=== PATIENT | female | born 1970 | race Caucasian/White ===

== ENCOUNTER 2023-10-09 10:24 | Emergency (ER) | payer OTHER ==
[~2023-10-09] VITALS: Ht 157.5 cm; Wt 77.1 kg
[~2023-10-09 10:24] MED LIST: Norco 7.5-3251 EACH PO
[2023-10-09] MEDS ORDERED: Ondansetron HCl 2 MG / ML 2ML Vial IV ONE (10:35)
[2023-10-09 11:13] LABS: BASOPHILS ABSOLUTE AUTO 0.05 K/mm3 (0.00-0.23); BASOPHILS PERCENT AUTO 1 % (0-2); EOSINOPHILS ABSOLUTE AUTO 0.21 K/mm3 (0.00-0.68); EOSINOPHILS PERCENT AUTO 4 % (0-6); Hematocrit 29.4 % (33.0-51.0); Hemoglobin 8.3 g/dL (11.5-16.0); IMMATURE GRAN ABSOLUTE AUTO 0.02 K/mm3 (0.00-0.10); IMMATURE GRAN PERCENT AUTO 0 % (0-1); LYMPHOCYTES ABSOLUTE AUTO 2.21 K/mm3 (0.84-5.20); LYMPHOCYTES PERCENT AUTO 37 % (21-46); MONOCYTES ABSOLUTE AUTO 0.46 K/mm3 (0.16-1.47); MONOCYTES PERCENT AUTO 8 % (4-13); Mean Corpuscular HGB 20.7 pg (26.0-34.0); Mean Corpuscular HGB Conc 28.2 g/dL (31.5-36.5); Mean Corpuscular Volume 73 fL (80-100); Mean Platelet Volume 9.4 fL (9.1-12.4); NEUTROPHILS PERCENT AUTO 51 % (41-73); Platelet Count 345 K/mm3 (150-400); RDW Coefficient Variation 16.3 % (11.7-14.2); RDW Standard Deviation 43.6 fL (35.1-46.3); Red Blood Cell Count 4.01 M/mm3 (3.80-5.20); White Blood Cell Count 5.95 K/mm3 (4.00-11.30)
[2023-10-09 11:33] LABS: Albumin, Blood 3.9 g/dL (3.4-5.0); Albumin/Globulin Ratio 1.2 (0.8-1.8); Bilirubin, Total 0.3 mg/dL (0.1-1.0); Bun/Creatinine Ratio 22.9 (12.0-20.0); Calcium, Blood 8.9 mg/dL (8.5-10.1); Creatinine, Blood 0.57 mg/dL (0.40-1.00); Globulin, Blood 3.3 g/dL (2.2-4.0); Magnesium, Blood 2.1 mg/dL (1.6-2.4); Potassium, Blood 3.5 mmol/L (3.5-5.5); Total Protein, Blood 7.2 g/dL (6.4-8.2)
[2023-10-09 13:30] LABS: Percent Saturation 3.9 % (15.0-50.0)
[2023-10-09] MEDS ORDERED: Sod Ferric Gluc Complx/Sucrose 125 MG in NS 100 ML IV ONE (13:30)
[2023-10-09] MEDS ORDERED: HYDROcodone 7.5-APAP 325 TAB PO ONE (13:35)
== END 2023-10-09 15:16 | disposition home or self-care (01) ==
LOC: ER 10:24
PROVIDERS: Physician Assistant
DX: D50.9 Iron deficiency anemia, unspecified (principal); N92.0 Excessive and frequent menstruation with regular cycle; M54.2 Cervicalgia; M54.9 Dorsalgia, unspecified; G89.29 Other chronic pain
CPT/HCPCS: 80053; 83540; 83550; 83735; 85025; 93005; 93010; 96365; 96375; 99283-25; A9270; J2405; J2916

== ENCOUNTER → 2023-10-16 | Outpatient (CLI) | payer OTHER ==
[~2023-10-16] MED LIST changes: +1/2 NS 250ml250 ML; +Adderall 30 MG30 MG PO; +BACL10 PO; +ONDA8 PO; +PANT40 PO; +WEGOVY2.4 MG/0.7 SC
[2023-10-18 16:00] LABS: APTIMA MEDIA TYPE Unisex Swab; C. TRACHOMATIS BY TMA Negative (Negative); N. GONORRHOEAE BY TMA Negative (Negative); SPECIMEN SOURCE Cervical
== END ==
LOC: LAB SHORT 16:47 → LAB 16:47
PROVIDERS: Family Medicine
DX: Z11.3 Encounter for screening for infections with a predominantly sexual mode of transmission (principal)
CPT/HCPCS: 87491; 87591

== ENCOUNTER 2023-10-20 00:48 | Day surgery (SDC) | payer OTHER ==
[~2023-10-20 00:48] MED LIST changes: -1/2 NS 250ml250 ML; -Adderall 30 MG30 MG PO; -BACL10 PO; -ONDA8 PO; -PANT40 PO; -WEGOVY2.4 MG/0.7 SC
[2023-10-20] MEDS ORDERED: Sod Ferric Gluc Complx/Sucrose 125 MG in NS 100 ML IV SCH (01:00)
[2023-10-20] MEDS ORDERED: Adderall 30 MG30 MG PO (14:19)
[2023-10-20] MEDS ORDERED: ONDA8 PO (14:20)
[2023-10-20] MEDS ORDERED: BACL10 PO (14:20)
[2023-10-20] MEDS ORDERED: PANT40 PO (14:21)
[2023-10-20] MEDS ORDERED: WEGOVY2.4 MG/0.7 SC (14:26)
[2023-10-20] MEDS ORDERED: 1/2 NS 250ml250 ML (14:26)
[2023-10-20 14:31] VITALS: BP 127/84
== END 2023-10-20 15:20 | disposition home or self-care (01) ==
LOC: ATC 00:48
DX: D50.8 Other iron deficiency anemias (principal); M54.12 Radiculopathy, cervical region; G89.4 Chronic pain syndrome; F90.2 Attention-deficit hyperactivity disorder, combined type; Z79.891 Long term (current) use of opiate analgesic; Z79.899 Other long term (current) drug therapy
CPT/HCPCS: 96365; J2916

== ENCOUNTER 2023-10-25 02:31 | Day surgery (SDC) | payer OTHER ==
[~2023-10-25 02:31] MED LIST changes: +1/2 NS 250ml250 ML; +Adderall 30 MG30 MG PO; +BACL10 PO; +ONDA8 PO; +PANT40 PO; +Sod Ferric Gluc Complx/Sucrose 125 MG in NS 100 ML IV SCH; +WEGOVY2.4 MG/0.7 SC
[2023-10-25 13:44] VITALS: BP 130/81
== END 2023-10-25 14:40 | disposition home or self-care (01) ==
LOC: ATC 02:31
DX: D50.9 Iron deficiency anemia, unspecified (principal); F90.2 Attention-deficit hyperactivity disorder, combined type; E66.9 Obesity, unspecified; Z68.31 Body mass index [BMI] 31.0-31.9, adult
CPT/HCPCS: 96365; J2916

== ENCOUNTER 2023-11-06 05:36 | Day surgery (SDC) | payer OTHER ==
[2023-11-06 15:32] LABS: BASOPHILS ABSOLUTE AUTO 0.04 K/mm3 (0.00-0.23); BASOPHILS PERCENT AUTO 1 % (0-2); EOSINOPHILS ABSOLUTE AUTO 0.12 K/mm3 (0.00-0.68); EOSINOPHILS PERCENT AUTO 2 % (0-6); Hematocrit 30.6 % (33.0-51.0); IMMATURE GRAN ABSOLUTE AUTO 0.02 K/mm3 (0.00-0.10); IMMATURE GRAN PERCENT AUTO 0 % (0-1); LYMPHOCYTES ABSOLUTE AUTO 0.86 K/mm3 (0.84-5.20); LYMPHOCYTES PERCENT AUTO 15 % (21-46); MONOCYTES ABSOLUTE AUTO 0.27 K/mm3 (0.16-1.47); MONOCYTES PERCENT AUTO 5 % (4-13); Mean Corpuscular HGB Conc 29.4 g/dL (31.5-36.5); Mean Corpuscular Volume 78 fL (80-100); Mean Platelet Volume 10.1 fL (9.1-12.4); NEUTROPHILS ABSOLUTE AUTO 4.33 K/mm3 (1.96-9.15); NEUTROPHILS PERCENT AUTO 77 % (41-73); Platelet Count 263 K/mm3 (150-400); RDW Coefficient Variation 21.5 % (11.7-14.2); RDW Standard Deviation 60.3 fL (35.1-46.3); Red Blood Cell Count 3.91 M/mm3 (3.80-5.20); White Blood Cell Count 5.64 K/mm3 (4.00-11.30)
[2023-11-06 15:36] LABS: Percent Saturation 37.6 % (15.0-50.0); Thyroid Stimulating Hormone 1.34 uIU/mL (0.360-4.800)
== END 2023-11-06 09:41 | disposition home or self-care (01) ==
LOC: ATC 05:36
PROVIDERS: Physician Assistant
DX: D50.8 Other iron deficiency anemias (principal); M54.12 Radiculopathy, cervical region; G89.4 Chronic pain syndrome; F90.2 Attention-deficit hyperactivity disorder, combined type; E66.9 Obesity, unspecified; Z68.31 Body mass index [BMI] 31.0-31.9, adult; Z88.8 Allergy status to other drugs, medicaments and biological substances; Z79.899 Other long term (current) drug therapy
CPT/HCPCS: 82728; 83036; 83540; 83550; 84443; 85025; 96365; J2916

== ENCOUNTER 2023-11-12 03:18 | Day surgery (SDC) | payer OTHER ==
[2023-11-12 08:05] VITALS: BP 132/85
== END 2023-11-12 09:19 | disposition home or self-care (01) ==
LOC: ATC 03:18
DX: D50.8 Other iron deficiency anemias (principal); G89.4 Chronic pain syndrome; M54.12 Radiculopathy, cervical region; F90.2 Attention-deficit hyperactivity disorder, combined type; E66.9 Obesity, unspecified; Z68.31 Body mass index [BMI] 31.0-31.9, adult; Z79.899 Other long term (current) drug therapy
CPT/HCPCS: 96365; J2916

== ENCOUNTER → 2024-01-02 | Outpatient (CLI) | payer OTHER ==
[~2024-01-02] MED LIST changes: -Sod Ferric Gluc Complx/Sucrose 125 MG in NS 100 ML IV SCH
[2024-01-06 13:59] LABS: 6-ACETYLMORPHINE, URN, QUANT <10 ng/mL; CODEINE, URN, QUANT <20 ng/mL; HYDROCODONE, URN, QUANT >4000 ng/mL; HYDROMORPHONE, URN, QUANT 54 ng/mL; MORPHINE, URN, QUANT <20 ng/mL; NORHYDROCODONE, URN, QUANT >4000 ng/mL; NOROXYCODONE, URN, QUANT <20 ng/mL; NOROXYMORPHONE, URN, QUANT <20 ng/mL; OXYCODONE, URN, QUANT <20 ng/mL; OXYMORPHONE, URN, QUANT <20 ng/mL
== END ==
LOC: LAB 15:00 → LAB SHORT 15:00
PROVIDERS: Physician Assistant
DX: Z79.891 Long term (current) use of opiate analgesic (principal)
CPT/HCPCS: G0480